=== PATIENT | male | born 1955 | race Caucasian/White ===

== ENCOUNTER 2018-03-04 16:29 | Emergency (ER) | payer SELFPAY ==
--- NOTE | 2018-03-04 17:09 | ER ---
Nurse's Notes [facility] Name: Mp Mitchell Age: 62 yrs Sex: Male : 1955 Arrival Date: 03/04/2018 Time: 16:31 Bed 13 Private MD: Diagnosis: Sciatica, left side Presentation: 03/04 16:31 Presenting complaint: Patient states: i started having back pain and the pain radiates hj to the L leg; pain is 5/10; denies hx of kidney stones; denies nausea and vomiting;. Transition of care: patient was not received from another setting of care. Onset of symptoms was March 04, 2018. Risk Assessment: Do you want to hurt yourself or someone else? Patient reports no desire to harm self or others. Initial Sepsis Screen: Does the patient meet any 2 criteria? No. Patient's initial sepsis screen is negative. Does the patient have a suspected source of infection? No. Patient's initial sepsis screen is negative. Care prior to arrival: None. 16:31 Method Of Arrival: Ambulatory 16:31 Acuity: JONAH 4 hj Triage Assessment: 16:34 General: Appears in no apparent distress. uncomfortable, Behavior is calm, cooperative, hj appropriate for age. Pain: Complains of pain in left low back Pain radiates to left leg Pain currently is 6 out of 10 on a pain scale. Historical: - Allergies: 16:34 No Known Allergies; hj - Home Meds: 16:34 amlodipine 10 mg tab 1 tab once daily [Active]; hydrochlorothiazide 12.5 mg Oral cap 1 hj cap once daily [Active]; - PMHx: 16:34 Hypertension; hj - PSHx: 16:34 None; hj - Immunization history:: Adult Immunizations up to date. - Social history:: Smoking status: Patient/guardian denies using tobacco, Patient uses alcohol, weekly. - Ebola Screening: : Patient negative for fever greater than or equal to 101.5 degrees Fahrenheit, and additional compatible Ebola Virus Disease symptoms Patient denies exposure to infectious person Patient denies travel to an Ebola-affected area in the 21 days before illness onset. Screenin:34 Abuse screen: Denies threats or abuse. Denies injuries from another. Nutritional hj screening: No deficits noted. Tuberculosis screening: No symptoms or risk factors identified. Fall Risk None identified. Assessment: 17:00 General: Appears in no apparent distress. uncomfortable, Behavior is calm, cooperative, jl7 appropriate for age. Pain: Complains of pain in back Pain radiates to left leg. Neuro: Level of Consciousness is awake, alert, obeys commands, Oriented to person, place, time, situation. Cardiovascular: Patient's skin is warm and dry. Respiratory: Airway is patent Respiratory effort is even, unlabored, Respiratory pattern is regular, symmetrical. Derm: Skin is pink, warm \T\ dry. Vital Signs: 16:34 BP 140 / 85; Pulse 95; Resp 18; Temp 97.3(TE); Pulse Ox 100% on R/A; Weight 101.15 kg; hj Height 5 ft. 10 in. (177.80 cm); Pain 5/10; 16:34 Body Mass Index 32.00 (101.15 kg, 177.80 cm) ED Course: 16:31 Patient arrived in ED. as 16:33 Triage completed. hj 16:34 Arm band placed on left wrist. hj 16:34 Patient has correct armband on for positive identification. Bed in low position. Call hj light in reach. 16:47 Alban Ribera MD is Attending Physician. 17:13 Yina Hicks RN is Primary Nurse. jl7 17:15 No provider procedures requiring assistance completed. Patient did not have IV access jl7 during this emergency room visit. Administered Medications: No medications were administered Outcome: 17:08 Discharge ordered by . gs 17:15 Discharged to home ambulatory. jl7 17:15 Condition: stable 17:15 Discharge instructions given to patient, Instructed on discharge instructions, follow up and referral plans. medication usage, Demonstrated understanding of instructions, follow-up care, medications, Prescriptions given X 2. 17:15 Patient left the ED. jl7 Signatures: Lupe Wen Henry, RN RN Yina Hicks RN RN jl Alban Ribera MD MD Corrections: (The following items were deleted from the chart) 16:37 16:34 Pulse 95bpm; Resp 18bpm; Pulse Ox 100% RA; Temp 97.3F Temporal; 101.15 kg; Height hj 5 ft. 10 in.; BMI: 32.0; Pain 5/10; hj
--- NOTE | 2018-03-04 17:09 | EDPHYS ---
Physician Documentation [facility] Name: Mp Mitchell Age: 62 yrs Sex: Male : 1955 Arrival Date: 03/04/2018 Time: 16:31 Bed 13 Private MD: ED Physician Alban Ribera HPI: 03/04 17:25 This 62 yrs old Male presents to ER via Ambulatory with complaints of Back gs Pain, Leg Pain. 17:25 The patient presents with pain that is acute. The symptoms are located in the left low gs back. Onset: The symptoms/episode began/occurred 2 day(s) ago. The pain radiates to the left quadriceps. Associated signs and symptoms: Pertinent negatives: incontinence, urinary retention, weakness. Modifying factors: the patient symptoms are aggravated by lifting, movement. Severity of symptoms: At their worst the symptoms were moderate, in the emergency department the symptoms have improved, markedly. The patient has experienced similar episodes in the past, a few times. Historical: - Allergies: 16:34 No Known Allergies; hj - Home Meds: 16:34 amlodipine 10 mg tab 1 tab once daily [Active]; hydrochlorothiazide 12.5 mg Oral cap 1 hj cap once daily [Active]; - PMHx: 16:34 Hypertension; hj - PSHx: 16:34 None; hj - Immunization history:: Adult Immunizations up to date. - Social history:: Smoking status: Patient/guardian denies using tobacco, Patient uses alcohol, weekly. - Ebola Screening: : Patient negative for fever greater than or equal to 101.5 degrees Fahrenheit, and additional compatible Ebola Virus Disease symptoms Patient denies exposure to infectious person Patient denies travel to an Ebola-affected area in the 21 days before illness onset. ROS: 17:25 All other systems are negative. gs Exam: 17:25 Head/Face: Normocephalic, atraumatic. Eyes: Pupils equal round and reactive to light, gs extra-ocular motions intact. Lids and lashes normal. Conjunctiva and sclera are non-icteric and not injected. Cornea within normal limits. Periorbital areas with no swelling, redness, or edema. ENT: Nares patent. No nasal discharge, no septal abnormalities noted. Tympanic membranes are normal and external auditory canals are clear. Oropharynx with no redness, swelling, or masses, exudates, or evidence of obstruction, uvula midline. Mucous membranes moist. Neck: Trachea midline, no thyromegaly or masses palpated, and no cervical lymphadenopathy. Supple, full range of motion without nuchal rigidity, or vertebral point tenderness. No Meningismus. Chest/axilla: Normal chest wall appearance and motion. Nontender with no deformity. No lesions are appreciated. Cardiovascular: Regular rate and rhythm with a normal S1 and S2. No gallops, murmurs, or rubs. Normal PMI, no JVD. No pulse deficits. Respiratory: Lungs have equal breath sounds bilaterally, clear to auscultation and percussion. No rales, rhonchi or wheezes noted. No increased work of breathing, no retractions or nasal flaring. Abdomen/GI: Soft, non-tender, with normal bowel sounds. No distension or tympany. No guarding or rebound. No evidence of tenderness throughout. Back: No spinal tenderness. No costovertebral tenderness. Full range of motion. Skin: Warm, dry with normal turgor. Normal color with no rashes, no lesions, and no evidence of cellulitis. MS/ Extremity: Pulses equal, no cyanosis. Neurovascular intact. Full, normal range of motion. Neuro: Awake and alert, GCS 15, oriented to person, place, time, and situation. Cranial nerves II-XII grossly intact. Motor strength 5/5 in all extremities. Sensory grossly intact. Cerebellar exam normal. Normal gait. 17:25 Constitutional: The patient appears alert, awake. Vital Signs: 16:34 BP 140 / 85; Pulse 95; Resp 18; Temp 97.3(TE); Pulse Ox 100% on R/A; Weight 101.15 kg; hj Height 5 ft. 10 in. (177.80 cm); Pain 5/10; 16:34 Body Mass Index 32.00 (101.15 kg, 177.80 cm) MDM: 17:07 Patient medically screened. 17:25 Differential diagnosis: Ligament Injury ruptured disc, sprain, sciatica. Data reviewed: vital signs, nurses notes. Counseling: I had a detailed discussion with the patient and/or guardian regarding: the historical points, exam findings, and any diagnostic results supporting the discharge/admit diagnosis, the need for outpatient follow up. Response to treatment: the patient's symptoms have mildly improved after treatment, and as a result, I will discharge patient. Administered Medications: No medications were administered Disposition: 03/04/18 17:08 Discharged to Home. Impression: Sciatica, left side. - Condition is Stable. - Discharge Instructions: Sciatica, Back Exercises, [id number]. - Prescriptions for Prednisone 20 mg Oral Tablet - take 1 tablet by ORAL route once daily for 5 days; 5 tablet. Tylenol- Codeine #4 300-60 mg Oral Tablet - take 1 tablet by ORAL route every 6 hours As needed; 12 tablet. - Medication Reconciliation Form, Thank You Letter, Antibiotic Education, Prescription Opioid Use form. - Follow up: Private Physician; When: 2 - 3 days; Reason: Re-evaluation by your physician. Signatures: Elio Hsieh RN RN hj Yina Hicks RN RN jl7 Alban Ribera MD MD gs Corrections: (The following items were deleted from the chart) 17:15 17:08 03/04/2018 17:08 Discharged to Home. Impression: Sciatica, left side. Condition jl7 is Stable. Forms are Medication Reconciliation Form, Thank You Letter, Antibiotic Education, Prescription Opioid Use. Follow up: Private Physician; When: 2 - 3 days; Reason: Re-evaluation by your physician. gs
== END 2018-03-04 17:15 | disposition home or self-care (01) ==
LOC: ER 16:29
DX: M54.32 Sciatica, left side (principal); I10 Essential (primary) hypertension
CPT/HCPCS: 99282